=== PATIENT | male | born 1990 | race Caucasian/White ===

== ENCOUNTER 2017-02-17 19:48 | Emergency (ER) | payer SELFPAY ==
[~2017-02-17] VITALS: Ht 180.3 cm; Wt 130.0 kg
[~2017-02-17 19:48] MED LIST: DOXY100T PO
[2017-02-17 19:49] VITALS: BP 163/90; PULSE 86; RESP 18; TEMP 98.9; O2SAT 99
[2017-02-17] MEDS ORDERED: IBUP800T23 PO (20:39)
[2017-02-17] MEDS ORDERED: PENI500T PO (20:39)
[2017-02-17] MEDS ORDERED: MAGICADU2 SWISH-SPIT (20:39)
--- NOTE | 2017-02-17 20:41 | PD ---
HPI Chief Complaint: Oral / Dental Pain or Problem Time Seen by Provider: 20:33 Travel History International Travel<30 days: No Contact w/Intl Traveler<30days: No Traveled to known affect area: No History of Present Illness HPI 27-year-old male with history of tobacco abuse presents for evaluation of dental pain. Symptoms started 1 week ago. Describes it as a throbbing pain which is constant, localized to the left maxillary second molar. The pain is worse with chewing. He denies any dental trauma. Using avrw-rqz-bybifzu clove oil and ibuprofen but symptoms persisted which prompted evaluation. No fevers. No other complaints. PFSH Past Medical History Diminished Hearing: No Immunizations Current: Yes Myocardial Infarction: Yes (pt states heart attack in 2013, negative heart cath at [facility] ) Past Surgical History Appendectomy: Yes Social History Alcohol Use: No Tobacco Use: No Substance Use: No Allergies-Medications (Allergen,Severity, Reaction): Coded Allergies: No Known Allergies (Verified , 02/17/17) Reported Meds & Prescriptions Reported Meds & Active Scripts Active Ibuprofen 800 Mg Tab 800 Mg PO Q6HR PRN Magic Mouthwash Adult Liq (Multi-Ingredient Mouthwash/Gargle) 120 Ml Susp 10 Ml SWISH-SPIT ACHS Each 5mL contains: Nystatin 200,000units, Diphenhydramine 4.25mg, Viscous Lidocaine 10mg, Hinds syrup 0.8 mL Penicillin V Potassium 500 Mg Tab 500 Mg PO Q8H 10 Days Review of Systems General / Constitutional: No: Fever HENT: Positive: Dental Difficulties Physical Exam Narrative GENERAL: Well-developed well-nourished male in no acute distress SKIN: Warm and dry. HEAD: Atraumatic. Normocephalic. EYES: Pupils equal and round. No scleral icterus. No injection or drainage. ENT: No nasal bleeding or discharge. Mucous membranes pink and moist. No trismus. The patient has multiple dental fillings in place. He has tenderness to palpation to the left maxillary second molar. Small amount of dental decay is noted. There is no periodontal edema, no facial edema, no sublingual edema. NECK: Trachea midline. No JVD. No lymphadenopathy, no submandibular edema. Data Data Last Documented VS Vital Signs Date Time Temp Pulse Resp B/P Pulse Ox O2 Delivery O2 Flow Rate FiO2 02/17/17 19:49 98.9 86 18 163/90 99 Room Air Orders Acetamin-Hydrocod 325-5 Mg ([place] 5-325 (02/17/17 20:45) Ondansetron Odt (Zofran Odt) (02/17/17 20:45) Penicillin V Potassium (Veetids) (02/17/17 20:45) MDM Medical Decision Making Medical Screen Exam Complete: Yes Emergency Medical Condition: Yes Medical Record Reviewed: Yes Differential Diagnosis Dental caries, pulpitis, periodontal abscess, pericoronitis Narrative Course 27-year-old male with 1 week of dental pain. Examination is consistent with dental caries. He has been given Lortab, penicillin and Zofran here. He will be discharged with prescription strength ibuprofen, Magic mouthwash and penicillin. He is encouraged to follow-up with a dentist for definitive therapy. He is stable for discharge. Diagnosis Primary Impression: Dental caries Additional Instructions: Medication as prescribed. Follow up with a dentist for definitive therapy. Return for any emergent medical conditions. Med/Other Pt SpecificInfo: Prescription(s) given Scripts Ibuprofen 800 Mg [id number] Mg PO Q6HR PRN (PAIN) #40 TAB Ref 0 Prov:Lex Rajput MD 02/17/17 Kqnicibq-Coukslipbtdarsy-Jlbjvpevb Liq (Magic Mouthwash Adult Liq)120 Ml Susp10 Ml SWISH-SPIT ACHS #120 ML Ref 1 Each 5mL contains: Nystatin 200,000units, Diphenhydramine 4.25mg, Viscous Lidocaine 10mg, Hinds syrup 0.8 mL Prov:Lex Rajput MD 02/17/17 Penicillin V Potassium 500 Mg [id number] Mg PO Q8H 10 Days Ref 0 Prov:Lex Rajput MD 02/17/17 Disposition: 01 DISCHARGE HOME Condition: Stable [place] Feb 17, 2017 20:40
[2017-02-17] MEDS ORDERED: ONDANSETRON ODT 4 MG TAB PO ONE (20:45)
[2017-02-17] MEDS ORDERED: ACETAMINOPHEN/HYDROcodone 325 MG/5 MG TAB PO ONE (20:45)
[2017-02-17] MEDS ORDERED: PENICILLIN V POTASSIUM 500 MG TAB PO ONE (20:45)
== END 2017-02-17 21:24 | disposition home or self-care (01) ==
LOC: NEPK 19:48
DX: K02.9 Dental caries, unspecified (principal); I25.2 Old myocardial infarction; Z87.891 Personal history of nicotine dependence
CPT/HCPCS: 99282